=== PATIENT | female | born 1935 | race Caucasian/White ===

== ENCOUNTER → 2017-09-25 | Day surgery (SDC) | payer MEDICARE, BC ==
[~2017-09-25] MED LIST: Brimonidine 0.2% Ophth Soln 5 ML Bottle EYEBOTH SCH; Phenylephrine 2.5% Ophth Soln 2 ML Bot EYEBOTH SCH; Pilocarpine 4% Ophth Soln 15 ML Bot EYEBOTH SCH
[2017-09-25 12:12] VITALS: BP 183/79
== END ==
LOC: JD.SDS 09:57
PROVIDERS: ATTEND Ophthalmology
DX: H40.1131 Primary open-angle glaucoma, bilateral, mild stage (principal); H02.834 Dermatochalasis of left upper eyelid; H02.831 Dermatochalasis of right upper eyelid; H35.40 Unspecified peripheral retinal degeneration; H26.493 Other secondary cataract, bilateral; M06.9 Rheumatoid arthritis, unspecified; I10 Essential (primary) hypertension; E07.9 Disorder of thyroid, unspecified; Z96.1 Presence of intraocular lens; Z90.49 Acquired absence of other specified parts of digestive tract; Z90.89 Acquired absence of other organs; Z90.710 Acquired absence of both cervix and uterus; Z98.890 Other specified postprocedural states; Z79.899 Other long term (current) drug therapy
CPT/HCPCS: A9270-GY

== ENCOUNTER 2019-04-08 18:02 | Emergency (ER) | payer MEDICARE, BC ==
[2019-04-08 18:32] VITALS: BP 166/77; PULSE 84
--- NOTE | 2019-04-08 19:00 | EDM.PDOC ---
ED HPI GENERAL MEDICAL PROBLEM - General Chief Complaint: Head Injury Stated Complaint: FALL/HEAD AND FACIAL INJURIES Time Seen by Provider: 04/08/19 18:31 Source of Information: Reports: Patient, RN Notes Reviewed History Limitations: Reports: No Limitations - History of Present Illness INITIAL COMMENTS - FREE TEXT/NARRATIVE: Patient is an 83-year-old female who presents to the ED for evaluation of a fall , and facial injuries. The patient states that around 2 PM today she was walking outside, and fell onto the cement, and struck her face on the cement. She denies any loss of consciousness or blacking out, she states that she just fell down. She notes she had a prior fall exactly like this 2 weeks ago at home , she was not evaluated at that time. Patient denies any dizziness prior to the falls, and that she just fell, she is not sure why this is happening. She takes an 81 mg aspirin daily, but is not on any other sort of blood thinners. Patient denies any sort of headache, blurred vision or double vision, or pain elsewhere in the body. She complains of mild facial pain, and neck soreness. She did not take any sort of pain medication prior to arrival. She does have multiple abrasions to the bridge of her nose, the inner upper lip, and skin tear abrasions on her nose and chin. There is quite a bit of swelling and bruising around the patient's eyes. Patient is alert and oriented, and she was able to walk back to the ER room by herself. The patient does have a friend present in the room, she does not state that the patient's mentation has changed from her normal. - Related Data Allergies Allergy/AdvReac Type Severity Reaction Status Date / Time Beta-Blockers Allergy Cannot Verified 09/24/17 13:04 (Beta-Adrenergic Bloc Remember bimatoprost [From Lumigan] Allergy Redness Verified 09/24/17 13:04 brimonidine [From Combigan] Allergy Redness Verified 09/24/17 13:04 timolol [From Combigan] Allergy Redness Verified 09/24/17 13:04 Home Meds: Home Meds Brimonidine Tartrate [Alphagan P 0.1% Ophth Soln] 1 drop EYEBOTH TID 05/27/16 [ History] Levothyroxine 25 mcg PO DAILY 05/27/16 [History] Calcium Carbonate/Vitamin D3 [Calcium 600 + Vit D 400 Tablet] 1 each PO DAILY [History] Cranberry 500 mg PO DAILY 06/26/16 [History] Fish Oil/DHA/EPA [Fish Oil 1,200 MG] 1 each PO DAILY 06/26/16 [History] Garlic 200 mg PO DAILY 06/26/16 [History] Gluc Horn Dipo Ch/Kendall Horn/C/Vinicio [Glucosamine Chondroitin Caplet] 1 each PO DAILY 06/26/16 [History] L.acidoph,Paracasei, B.lactis [Probiotic] 1 each PO DAILY 06/26/16 [History] Lutein 40 mg PO DAILY 06/26/16 [History] Magnesium 200 mg PO DAILY 06/26/16 [History] Melatonin 3 mg PO BEDTIME 06/26/16 [History] Multivitamin [Multivitamins] 1 each PO DAILY 06/26/16 [History] Rutin 500 mg PO DAILY 06/26/16 [History] Acetaminophen/Diphenhydramine [Tylenol Pm Ex-Strength Caplet] 1 tab PO BEDTIME PRN 09/24/17 [History] Ascorbic Acid [Vitamin C] 1,000 mg PO DAILY 09/24/17 [History] Cholecalciferol (Vitamin D3) [Vitamin D3] 1,000 unit PO DAILY 09/24/17 [History] Flaxseed Oil 1,000 mg PO DAILY 09/24/17 [History] Lisinopril 10 mg PO DAILY 09/24/17 [History] Vitamin B Complex 1 cap PO DAILY 09/24/17 [History] Vitamin E 100 unit PO DAILY 09/24/17 [History] Past Medical History HEENT History: Reports: Impaired Vision Cardiovascular History: Reports: High Cholesterol Respiratory History: Reports: None Gastrointestinal History: Reports: None Genitourinary History: Reports: Urinary Incontinence 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: Musculoskeletal History: Reports: Osteoarthritis Neurological History: Reports: None Psychiatric History: Reports: Anxiety, Depression Other Psychiatric History: mild depression Endocrine/Metabolic History: Reports: Hypothyroidism Hematologic History: Reports: None Immunologic History: Reports: None Oncologic (Cancer) History: Reports: Basal Cell Carcinoma Dermatologic History: Reports: None - Infectious Disease History Infectious Disease History: Reports: None - Past Surgical History Head Surgeries/Procedures: Reports: None HEENT Surgical History: Reports: Oral Surgery, Tonsillectomy GI Surgical History: Reports: Appendectomy, Colonoscopy Female Surgical History: Reports: Hysterectomy Social & Family History - Tobacco Use Smoking Status *Q: Never Smoker - Caffeine Use Caffeine Use: Reports: None - Recreational Drug Use Recreational Drug Use: No - Living Situation & Occupation Living situation: Reports: Single, Alone Occupation: Retired ED ROS GENERAL - Review of Systems Review Of Systems: See Below Constitutional: Denies: Fever, Chills, Weakness HEENT: Reports: Glasses, Other (neck soreness, facial tenderness). Denies: Dental Pain, Ear Discharge, Eye Pain, Nosebleed, Vertigo, Vision Change Respiratory: Denies: Shortness of Breath Cardiovascular: Denies: Chest Pain Endocrine: Reports: No Symptoms GI/Abdominal: Denies: Abdominal Pain, Nausea, Vomiting Musculoskeletal: Reports: Neck Pain Skin: Reports: Bruising (under bilateral eyes), Wound (small lac to bridge of nose, multiple abrasions to nose and chin, laceration to inside upper lip) Neurological: Reports: Syncope. Denies: Dizziness, Headache, Numbness, Tingling , Difficulty Walking, Weakness, Gait Disturbance Psychiatric: Reports: No Symptoms Hematologic/Lymphatic: Reports: No Symptoms ED EXAM, HEAD INJURY - Physical Exam Exam: See Below Exam Limited By: No Limitations General Appearance: Alert, WD/WN, No Apparent Distress Head: Normocephalic, Facial Abrasions (multiple noted to nose and chin), Facial Ecchymosis (under bilateral eyes), Facial Lacerations (on bridge of nose medial to the eyes), Facial Swelling (mild under bilateral eyes), Facial Tenderness ( over bilateral zygomatic processes). No: Scalp Lacerations Nexus Criteria: No: Posterior, Midline Cervical Tenderness, Evidence of Intoxication, Altered Level of Consciousness, Focal Neurological Deficit, Painful Distraction Injuries Eyes: Bilateral Eye: EOMI, Normal Inspection, PERRL Ears: Normal External Exam, Normal Canal, Hearing Grossly Normal, Normal TMs Nose: Normal Mucousa, Other (see head assessment) Throat/Mouth: Normal Inspection, Normal Lips, Normal Teeth, Normal Gums, Normal Oropharynx, Normal Voice, No Airway Compromise, Lip Swelling (upper lip with laceration to inside medial upper lip) Neck: Full Range of Motion, Normal Alignment, Normal Inspection, Tender Lateral Respiratory: No Respiratory Distress, Lungs Clear, Normal Breath Sounds, No Accessory Muscle Use, Chest Non-Tender Cardiovascular: Normal Peripheral Pulses, Regular Rate, Rhythm, No Murmur GI/Abdominal Exam: Normal Bowel Sounds, Soft, Non-Tender, No Distention, No Mass Back Exam: Normal Inspection, Full Range of Motion Extremities: Normal Inspection, Normal Capillary Refill Neurologic: developer evangelist II-XII nml As Tested (grossly), No Motor/Sensory Deficits, Alert , Normal Mood/Affect, Oriented x 3 Skin: Normal Color, Warm/Dry, Ecchymosis (multiple noted on head assessment) - Scott Coma Score Best Eye Response ([place]): (4) Open Spontaneously Best Verbal Response ([place]): (5) Oriented Best Motor Response ([place]): (6) Obeys Commands Scott Total: 15 Course - Vital Signs Last Recorded V/S: Last Vital Signs Temp 98.4 F 04/08/19 18:27 Pulse 84 04/08/19 18:27 Resp 14 04/08/19 18:27 BP 166/77 H 04/08/19 18:27 Pulse Ox 97 04/08/19 18:27 - Orders/Labs/Meds Orders: Active Orders 24 hr Category Date Time Status Influenza Vaccine Charge [RC] .DISCHARGE Care 04/08/19 18:35 Active Labs: Laboratory Tests 04/08/19 04/08/19 04/08/19 Range/Units 19:26 19:26 19:26 WBC 8.45 (3.98-10.04) K/mm3 RBC 3.50 L (3.98-5.22) M/mm3 Hgb 12.0 D (11.2-15.7) gm/dl Hct 33.6 L (34.1-44.9) % MCV 96.0 H (79.4-94.8) fl MCH 34.3 H (25.6-32.2) pg MCHC 35.7 H (32.2-35.5) g/dl RDW Std Deviation 46.1 (36.4-46.3) fL Plt Count 258 (182-369) K/mm3 MPV 10.6 (9.4-12.3) fl Neut % (Auto) 79.8 H (34.0-71.1) % Lymph % (Auto) 11.0 L (19.3-51.7) % [place] % (Auto) 8.8 (4.7-12.5) % Eos % (Auto) 0.2 L (0.7-5.8) Baso % (Auto) 0.2 (0.1-1.2) % Neut # (Auto) 6.74 H (1.56-6.13) K/mm3 Lymph # (Auto) 0.93 L (1.18-3.74) K/mm3 [place] # (Auto) 0.74 H (0.24-0.36) K/mm3 Eos # (Auto) 0.02 L (0.04-0.36) K/mm3 Baso # (Auto) 0.02 (0.01-0.08) K/mm3 PT 10.5 (9.7-12.0) SECONDS INR 0.96 APTT 25 (22-31) SECONDS Sodium 133 L (136-145) mEq/L Potassium 3.7 (3.5-5.1) mEq/L Chloride 96 L (98-107) mEq/L Carbon Dioxide 30 (21-32) mEq/L Anion Gap 10.7 (5-15) BUN 23 H (7-18) mg/dL Creatinine 1.3 H (0.55-1.02) mg/dL Est Cr Clr Drug Dosing 21.14 mL/min Estimated GFR (MDRD) 39 (>60) mL/min BUN/Creatinine Ratio 17.7 (14-18) Glucose 142 H (83-115) mg/dL Calcium 9.5 (8.5-10.1) mg/dL Magnesium 1.9 (1.8-2.4) mg/dl Total Bilirubin 0.5 (0.2-1.0) mg/dL AST 27 (15-37) U/L ALT 31 (14-59) U/L Alkaline Phosphatase 66 (46-116) U/L Total Protein 7.2 (6.4-8.2) g/dl Albumin 3.6 (3.4-5.0) g/dl Globulin 3.6 gm/dL Albumin/Globulin Ratio 1.0 (1-2) Urine Color (Yellow) Urine Appearance (Clear) Urine pH (5.0-8.0) Ur Specific [place] (1.005-1.030) Urine Protein (Negative) Urine Glucose (UA) (Negative) Urine Ketones (Negative) Urine Occult Blood (Negative) Urine Nitrite (Negative) Urine Bilirubin (Negative) Urine Urobilinogen (0.2-1.0) Ur Leukocyte Esterase (Negative) Urine RBC (0-5) /hpf Urine WBC (0-5) /hpf Ur Squamous Epith Cells (0-5) /hpf Urine Bacteria (FEW) /hpf Urine Mucus (FEW) /hpf 04/08/19 Range/Units 20:02 WBC (3.98-10.04) K/mm3 RBC (3.98-5.22) M/mm3 Hgb (11.2-15.7) gm/dl Hct (34.1-44.9) % MCV (79.4-94.8) fl MCH (25.6-32.2) pg MCHC (32.2-35.5) g/dl RDW Std Deviation (36.4-46.3) fL Plt Count (182-369) K/mm3 MPV (9.4-12.3) fl Neut % (Auto) (34.0-71.1) % Lymph % (Auto) (19.3-51.7) % [place] % (Auto) (4.7-12.5) % Eos % (Auto) (0.7-5.8) Baso % (Auto) (0.1-1.2) % Neut # (Auto) (1.56-6.13) K/mm3 Lymph # (Auto) (1.18-3.74) K/mm3 [place] # (Auto) (0.24-0.36) K/mm3 Eos # (Auto) (0.04-0.36) K/mm3 Baso # (Auto) (0.01-0.08) K/mm3 PT (9.7-12.0) SECONDS INR APTT (22-31) SECONDS Sodium (136-145) mEq/L Potassium (3.5-5.1) mEq/L Chloride (98-107) mEq/L Carbon Dioxide (21-32) mEq/L Anion Gap (5-15) BUN (7-18) mg/dL Creatinine (0.55-1.02) mg/dL Est Cr Clr Drug Dosing mL/min Estimated GFR (MDRD) (>60) mL/min BUN/Creatinine Ratio (14-18) Glucose (83-115) mg/dL Calcium (8.5-10.1) mg/dL Magnesium (1.8-2.4) mg/dl Total Bilirubin (0.2-1.0) mg/dL AST (15-37) U/L ALT (14-59) U/L Alkaline Phosphatase (46-116) U/L Total Protein (6.4-8.2) g/dl Albumin (3.4-5.0) g/dl Globulin gm/dL Albumin/Globulin Ratio (1-2) Urine Color Yellow (Yellow) Urine Appearance Clear (Clear) Urine pH 6.5 (5.0-8.0) Ur Specific [place] 1.020 (1.005-1.030) Urine Protein Negative (Negative) Urine Glucose (UA) Negative (Negative) Urine Ketones Negative (Negative) Urine Occult Blood Negative (Negative) Urine Nitrite Negative (Negative) Urine Bilirubin Negative (Negative) Urine Urobilinogen 0.2 (0.2-1.0) Ur Leukocyte Esterase Negative (Negative) Urine RBC 0-5 (0-5) /hpf Urine WBC 0-5 (0-5) /hpf Ur Squamous Epith Cells 0-5 (0-5) /hpf Urine Bacteria Few (FEW) /hpf Urine Mucus Not seen (FEW) /hpf Meds: Medications Discontinued Medications Generic Name Dose Route Start Last Admin Trade Name Freq PRN Reason Stop Dose Admin Influenza Virus Vaccine 180 mcg 04/08/19 18:45 04/08/19 19:41 Fluzone High-Dose 2019-20 Syringe IM 04/08/19 18:46 180 mcg .ONCE ONE Administration - Re-Assessments/Exams Free Text/Narrative Re-Assessment/Exam: 04/08/19 19:05 Patient presents to the ED for evaluation of a fall and multiple facial injuries. I did order some lab work to include CBC, CMP, magnesium, urinalysis , PTT and PT/INR,, head CT, cervical spine CT, and maxillofacial CT without contrast for further evaluation of injury she may have sustained. The wound on the bridge of her nose will need to be repaired, this is to be determined on how this will be done at this point in time, all other wounds are abrasion-like wounds. The wound on the inside of her lip will be left to heal on its own intention, as I believe placing stitches would be more bothersome to the patient. 04/08/19 20:05 Patient's labs are done, and do not demonstrate any obvious acute abnormalities , she is mildly hyponatremic at 133, this should be easily corrected with oral fluid intake, no meningeal be done in the ER for this today. The patient's CTs of the head demonstrates senescent change, but no acute bleed or abnormalities, the maxillofacial CT demonstrates a mildly comminuted and mildly displaced nasal bone fracture with soft tissue swelling noted within the nose but no additional fractures seen, the right and left globes are symmetric. The patient 's cervical spine CT demonstrates degenerative change noted but nothing acute appreciated. Departure - Departure Time of Disposition: 20:28 Disposition: Home, Self-Care 01 Condition: Fair Clinical Impression: Nasal bones, closed fracture Qualifiers: Encounter type: initial encounter Qualified Code(s): S02.2XXA - Fracture of nasal bones, initial encounter for closed fracture Fall Qualifiers: Encounter type: initial encounter Qualified Code(s): W19.XXXA - Unspecified fall, initial encounter - Discharge Information *PRESCRIPTION DRUG MONITORING PROGRAM REVIEWED*: No *COPY OF PRESCRIPTION DRUG MONITORING REPORT IN PATIENT ALIS: No Instructions: Nasal Fracture, [id number], Facial or Scalp Contusion, Easy-to- Read Referrals: Jocy Duncan MD [Primary Care Provider] - Forms: ED Department Discharge Additional Instructions: You were evaluated in the ED today for your fall and facial injuries. The CT done of the facial bones demonstrates that you to have a nasal fracture, this should heal fine without needing any sort of orthopedic management. Your lacerations were treated in the ER today, there was a Steri-Strip placed on the bridge or nose, this was the only site that needed a bandage, the rest are abrasions and will scab and heal over time. The bruises and your eyes will likely worsen over the next day or 2, but should get better. Your laboratory evaluation was within normal limits, there are no metabolic abnormalities that would point to why you are having increased falls, recommend that you follow up with your primary care physician for further management. Please ice the area in 15 minute intervals as tolerated to help relieve the swelling. You may take 500 mg of Tylenol or ibuprofen 400 mg every 6 hours as needed for further pain relief. Regarding the lifeline situation. Unfortunately, there is nothing that can be provided through the ER for tonight's purposes. [facility] services should be able to help you tomorrow. Please krishna [phone] to try and set up services. Please return to the ED if your symptoms should change or worsen. - My Orders Last 24 Hours: My Active Orders 04/08/19 18:35 Influenza Vaccine Charge [RC] .DISCHARGE - Assessment/Plan Last 24 Hours: My Active Orders 04/08/19 18:35 Influenza Vaccine Charge [RC] .DISCHARGE
--- NOTE | 2019-04-08 19:52 | CT ---
Head CT Technique: Multiple axial sections through the brain were obtained. Intravenous contrast was not utilized. Comparison: No previous intracranial imaging. Findings: Ventricles along with basal cisterns and sulci over convexities are mildly prominent. Diminished density is noted within the periventricular and subcortical white matter compatible with small vessel ischemic demyelination change. No evidence of intracranial hemorrhage. No midline shift or mass effect is seen. Bone window settings were reviewed which shows no acute calvarial abnormality. Visualized sinuses are clear. Nasal bone fracture is noted which will be further described on facial bone study. Impression: 1. Senescent change as noted above. 2. Nasal bone fracture which will be described on CT facial bone study. 3. No acute intracranial abnormality or skull fracture is seen. Diagnostic code #2
--- NOTE | 2019-04-08 19:53 | CT ---
CT cervical spine Technique: Multiple axial sections were obtained from above C1 inferiorly to the bottom of T1. Reconstructed sagittal and coronal images were reviewed. Comparison: No prior cervical spine imaging. Findings: Degenerative change is noted between the dens and anterior arch of C1. Severe disc space narrowing is noted at C5-C6 with mild posterior spurring and anterior osteophytes. Mild disc space narrowing is noted at C2-C3. Other disc spaces are maintained. Vertebral body heights are maintained. Mild right-sided neural foraminal stenosis is noted C5-C6 with minimal left-sided neural foraminal stenosis. No other findings of neural foraminal narrowing are seen. No bony central canal stenosis is noted. No fracture is seen. No abnormal subluxation is seen. Mild degenerative change is scattered within the apophyseal joints. Degenerative spurring is noted within the uncovertebral joints which is most prominent at C5-C6. Impression: 1. Degenerative change as noted above. Nothing acute is appreciated. Diagnostic code #2
--- NOTE | 2019-04-08 19:55 | CT ---
CT facial bones Technique: Multiple axial sections were obtained through the facial bones. Reconstructed coronal and sagittal images were obtained. Findings: Mildly comminuted and mildly displaced nasal bone fracture is seen. Soft tissue swelling is also noted within the nose. No additional fracture is seen. Right left globes are symmetric. Impression: 1. Mildly comminuted and mildly displaced nasal bone fracture. 2. Nothing else acute is seen on CT study of the facial bones. Diagnostic code #3
== END 2019-04-08 21:18 | disposition home or self-care (01) ==
LOC: JD.ED 18:02
DX: S02.2XXA Fracture of nasal bones, initial encounter for closed fracture (principal); S00.83XA Contusion of other part of head, initial encounter; S00.81XA Abrasion of other part of head, initial encounter; E78.00 Pure hypercholesterolemia, unspecified; E03.9 Hypothyroidism, unspecified; Z79.890 Hormone replacement therapy; Z85.9 Personal history of malignant neoplasm, unspecified; Z23 Encounter for immunization; Z79.899 Other long term (current) drug therapy; Z79.82 Long term (current) use of aspirin; Z88.8 Allergy status to other drugs, medicaments and biological substances; W19.XXXA Unspecified fall, initial encounter; Y93.01 Activity, walking, marching and hiking; Y92.89 Other specified places as the place of occurrence of the external cause
CPT/HCPCS: 36415; 70450; 70486; 72125; 80053; 81001; 83735; 85025; 85610; 85730; 90662; 99283; G0008; 99282

== ENCOUNTER 2019-04-09 09:08 | Emergency (ER) | payer MEDICARE, BC ==
[2019-04-09 09:32] VITALS: BP 140/59; PULSE 59
--- NOTE | 2019-04-09 11:04 | EDM.PDOC ---
ED HPI GENERAL MEDICAL PROBLEM - General Chief Complaint: ENT Problem Stated Complaint: FACIAL INJURIES/RECHECK Time Seen by Provider: 04/09/19 09:30 Source of Information: Reports: Patient History Limitations: Reports: No Limitations - History of Present Illness INITIAL COMMENTS - FREE TEXT/NARRATIVE: The patient presents with epistaxis. She fell yesterday and landed on her face. She was seen here and had a CT of her head, face, and cervical spine. She was found to have a nasal bone fracture. She said it bled most of the night. The bleeding is mostly from the left nostril. Onset: Sudden Duration: Day(s): (Yesterday) Location: Reports: Face Quality: Reports: Ache Severity: Moderate Improves with: Reports: None Worsens with: Reports: None Associated Symptoms: Reports: No Other Symptoms - Related Data Allergies Allergy/AdvReac Type Severity Reaction Status Date / Time Beta-Blockers Allergy Cannot Verified 04/09/19 09:32 (Beta-Adrenergic Bloc Remember bimatoprost [From Lumigan] Allergy Redness Verified 04/09/19 09:32 brimonidine [From Combigan] Allergy Redness Verified 04/09/19 09:32 timolol [From Combigan] Allergy Redness Verified 04/09/19 09:32 Home Meds: Home Meds Brimonidine Tart[facility] 1 drop EYEBOTH TID 05/27/16 [ History] Levothyroxine 25 mcg PO DAILY 05/27/16 [History] Calcium Carbonate/Vitamin D3 [Calcium 600 + Vit D 400 Tablet] 1 each PO DAILY [History] Cranberry 500 mg PO DAILY 06/26/16 [History] Fish Oil/DHA/EPA [Fish Oil 1,200 MG] 1 each PO DAILY 06/26/16 [History] Garlic 200 mg PO DAILY 06/26/16 [History] Gluc Horn Dipo Ch/Kendall Horn/C/Vinicio [Glucosamine Chondroitin Caplet] 1 each PO DAILY 06/26/16 [History] L.acidoph,Paracasei, B.lactis [Probiotic] 1 each PO DAILY 06/26/16 [History] Lutein 40 mg PO DAILY 06/26/16 [History] Magnesium 200 mg PO DAILY 06/26/16 [History] Melatonin 3 mg PO BEDTIME 06/26/16 [History] Multivitamin [Multivitamins] 1 each PO DAILY 06/26/16 [History] Rutin 500 mg PO DAILY 06/26/16 [History] Acetaminophen/Diphenhydramine [Tylenol Pm Ex-Strength Caplet] 1 tab PO BEDTIME PRN 09/24/17 [History] Ascorbic Acid [Vitamin C] 1,000 mg PO DAILY 09/24/17 [History] Cholecalciferol (Vitamin D3) [Vitamin D3] 1,000 unit PO DAILY 09/24/17 [History] Flaxseed Oil 1,000 mg PO DAILY 09/24/17 [History] Lisinopril 10 mg PO DAILY 09/24/17 [History] Vitamin B Complex 1 cap PO DAILY 09/24/17 [History] Vitamin E 100 unit PO DAILY 09/24/17 [History] cephALEXin [Keflex] 500 mg PO Q8H #21 cap 04/09/19 [Rx] Past Medical History HEENT History: Reports: Impaired Vision Cardiovascular History: Reports: High Cholesterol Respiratory History: Reports: None Gastrointestinal History: Reports: None Genitourinary History: Reports: Urinary Incontinence 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: Musculoskeletal History: Reports: Osteoarthritis Neurological History: Reports: None Psychiatric History: Reports: Anxiety, Depression Other Psychiatric History: mild depression Endocrine/Metabolic History: Reports: Hypothyroidism Hematologic History: Reports: None Immunologic History: Reports: None Oncologic (Cancer) History: Reports: Basal Cell Carcinoma Dermatologic History: Reports: None - Infectious Disease History Infectious Disease History: Reports: None - Past Surgical History Head Surgeries/Procedures: Reports: None HEENT Surgical History: Reports: Oral Surgery, Tonsillectomy GI Surgical History: Reports: Appendectomy, Colonoscopy Female Surgical History: Reports: Hysterectomy Social & Family History - Caffeine Use Caffeine Use: Reports: None - Living Situation & Occupation Living situation: Reports: Single, Alone Occupation: Retired ED ROS ENT - Review of Systems Review Of Systems: See Below Constitutional: Reports: No Symptoms HEENT: Reports: Nosebleed Respiratory: Reports: No Symptoms Cardiovascular: Reports: No Symptoms Endocrine: Reports: No Symptoms GI/Abdominal: Reports: No Symptoms : Reports: No Symptoms ED EXAM, ENT - Physical Exam Exam: See Below Exam Limited By: No Limitations General Appearance: Alert, No Apparent Distress Ears: Normal External Exam Nose: Other (Edema and ecchymosis. Mild bleeding from the left nostril) Head: Other (Ecchymosis below both eyes. Abrasions and edema to her face) Neck: Normal Inspection Respiratory/Chest: No Respiratory Distress ED ENT PROCEDURES - Epistaxis Procedure Indication: Epistaxis Recent anticoagulants/antiplatlets: Yes (aspirin) Uncontrolled HTN: No Recent septal/nasal surgery: No Site of bleeding: Left Nare Clearing of clots: Patient Blew Nose Ice pack to area: No Chemical cautery: Silver Nitrate Topical Anterior Packing: Petrolatum Guaze Strip Course - Vital Signs Last Recorded V/S: Last Vital Signs Temp 96.6 F 04/09/19 09:29 Pulse 59 L 04/09/19 09:29 Resp 18 04/09/19 09:29 BP 140/59 L 04/09/19 09:29 Pulse Ox 98 04/09/19 09:29 - Orders/Labs/Meds Meds: Medications Discontinued Medications Generic Name Dose Route Start Last Admin Trade Name Freq PRN Reason Stop Dose Admin Acetaminophen 650 mg 04/09/19 12:11 Tylenol PO 04/09/19 12:12 ONETIME ONE - Re-Assessments/Exams Free Text/Narrative Re-Assessment/Exam: 04/09/19 11:04 I tried to cauterize the bleed but it did not stop so I packed it with petroleum gauze. I will see if that stops it. 04/09/19 12:23 The bleeding appears to have stopped. I will get her on some keflex because I did pack her. Departure - Departure Time of Disposition: 12:25 Disposition: Home, Self-Care 01 Condition: Good Clinical Impression: Epistaxis Nasal bones, closed fracture Qualifiers: Encounter type: initial encounter Qualified Code(s): S02.2XXA - Fracture of nasal bones, initial encounter for closed fracture Fall Qualifiers: Encounter type: initial encounter Qualified Code(s): W19.XXXA - Unspecified fall, initial encounter - Discharge Information *PRESCRIPTION DRUG MONITORING PROGRAM REVIEWED*: No *COPY OF PRESCRIPTION DRUG MONITORING REPORT IN PATIENT ALIS: No Prescriptions: cephALEXin [Keflex] 500 mg PO Q8H #21 cap Referrals: Jocy Duncan MD [Primary Care Provider] - Forms: ED Department Discharge Additional Instructions: Take the keflex 3 times per day for 7 days. Follow up within a week and have the packing removed. Please return if you are worse.
[2019-04-09] MEDS ORDERED: Acetaminophen 325 MG Tab PO ONE (12:11)
== END 2019-04-09 12:46 | disposition home or self-care (01) ==
LOC: JD.ED 09:08
DX: S02.2XXA Fracture of nasal bones, initial encounter for closed fracture (principal); R04.0 Epistaxis; S00.12XA Contusion of left eyelid and periocular area, initial encounter; S00.11XA Contusion of right eyelid and periocular area, initial encounter; S00.81XA Abrasion of other part of head, initial encounter; E03.9 Hypothyroidism, unspecified; H54.7 Unspecified visual loss; Z79.890 Hormone replacement therapy; Z88.8 Allergy status to other drugs, medicaments and biological substances; W19.XXXA Unspecified fall, initial encounter
CPT/HCPCS: 30901; 99283; A9270; 30905

== ENCOUNTER 2020-09-18 15:11 | Emergency (ER) | payer MEDICARE, BC ==
--- NOTE | 2020-09-18 15:49 | EDM.PDOC ---
ED HPI GENERAL MEDICAL PROBLEM - General Chief Complaint: ENT Problem Stated Complaint: HEAD/FACE INJURIES Time Seen by Provider: 09/18/20 15:48 - History of Present Illness INITIAL COMMENTS - FREE TEXT/NARRATIVE: 85-year-old female comes in by private car after falling and hitting her face. The patient was walking back to her apartment from the grocery store and she believes she stumbled or tripped over something and fell forward. She landed right on her nose. She also cut her upper lip and broke a tooth. Patient denies being knocked out. Patient does not believe she had dizzy before falling. She denies any other injury associated with this most unfortunate event. Patient denies any chest pain breathing difficulties and certainly has not had any palpitations. She is unaware when her last tetanus shot was. Face/Facial Pain Score (Numeric/FACES): 5 - Related Data Allergies Allergy/AdvReac Type Severity Reaction Status Date / Time Beta-Blockers Allergy Severe Cannot Verified 09/18/20 15:21 (Beta-Adrenergic Bloc Remember bimatoprost [From Lumigan] Allergy Severe Redness Verified 09/18/20 15:21 brimonidine [From Combigan] Allergy Severe Redness Verified 09/18/20 15:21 timolol [From Combigan] Allergy Severe Redness Verified 09/18/20 15:21 Home Meds: Home Meds Brimonidine Tartrate [Alphagan P 0.1% Ophth Soln] 1 drop EYEBOTH TID 05/27/16 [History] Levothyroxine 25 mcg PO DAILY 05/27/16 [History] Calcium Carbonate/Vitamin D3 [Calcium 600 + Vit D 400 Tablet] 1 each PO DAILY 06/26/16 [History] Cranberry 500 mg PO DAILY 06/26/16 [History] Fish Oil/DHA/EPA [Fish Oil 1,200 MG] 1 each PO DAILY 06/26/16 [History] Garlic 200 mg PO DAILY 06/26/16 [History] Glucosamine/Chondroitin/C/Vinicio [Glucosamine Chondroitin Caplet] 1 each PO DAILY 06/26/16 [History] L.acidoph,Paracasei, B.lactis [Probiotic] 1 each PO DAILY 06/26/16 [History] Lutein 40 mg PO DAILY 06/26/16 [History] Magnesium 200 mg PO DAILY 06/26/16 [History] Melatonin 3 mg PO BEDTIME 06/26/16 [History] Multivitamin [Multivitamins] 1 each PO DAILY 06/26/16 [History] Rutin 500 mg PO DAILY 06/26/16 [History] Acetaminophen/Diphenhydramine [Tylenol Pm Ex-Strength Caplet] 1 tab PO BEDTIME PRN 09/24/17 [History] Ascorbic Acid [Vitamin C] 1,000 mg PO DAILY 09/24/17 [History] Cholecalciferol (Vitamin D3) [Vitamin D3] 1,000 unit PO DAILY 09/24/17 [History] Flaxseed Oil 1,000 mg PO DAILY 09/24/17 [History] Lisinopril 10 mg PO DAILY 09/24/17 [History] Vitamin B Complex 1 cap PO DAILY 09/24/17 [History] Vitamin E 100 unit PO DAILY 09/24/17 [History] cephALEXin [Keflex] 500 mg PO Q8H #21 cap 04/09/19 [Rx] Amoxicillin 875 mg PO BID #20 tablet 09/18/20 [Rx] Past Medical History HEENT History: Reports: Impaired Vision Cardiovascular History: Reports: High Cholesterol Respiratory History: Reports: None Gastrointestinal History: Reports: None Genitourinary History: Reports: Urinary Incontinence [employer]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: Musculoskeletal History: Reports: Osteoarthritis Neurological History: Reports: None Psychiatric History: Reports: Anxiety, Depression Other Psychiatric History: mild depression Endocrine/Metabolic History: Reports: Hypothyroidism Hematologic History: Reports: None Immunologic History: Reports: None Oncologic (Cancer) History: Reports: Basal Cell Carcinoma Dermatologic History: Reports: None - Infectious Disease History Infectious Disease History: Reports: None - Past Surgical History Head Surgeries/Procedures: Reports: None HEENT Surgical History: Reports: Oral Surgery, Tonsillectomy GI Surgical History: Reports: Appendectomy, Colonoscopy Female Surgical History: Reports: Hysterectomy Dermatological Surgical History: Reports: Other (See Below) Social & Family History - Family History Family Medical History: No Pertinent Family History - Tobacco Use Tobacco Use Status *Q: Never Tobacco User - Caffeine Use Caffeine Use: Reports: None - Recreational Drug Use Recreational Drug Use: No - Living Situation & Occupation Living situation: Reports: Single, Alone Occupation: Retired ED ROS ENT - Review of Systems Review Of Systems: See Below Constitutional: Reports: No Symptoms HEENT: Reports: Other (No complaints other than the injuries sustained today from the fall) Respiratory: Reports: No Symptoms Cardiovascular: Reports: No Symptoms Endocrine: Reports: No Symptoms GI/Abdominal: Reports: No Symptoms : Reports: No Symptoms Musculoskeletal: Reports: No Symptoms. Denies: Neck Pain, Shoulder Pain, Arm Pain, Back Pain, Hand Pain Neurological: Reports: No Symptoms. Denies: Dizziness, Headache, Numbness, Trouble Speaking, Difficulty Walking Psychiatric: Reports: No Symptoms ED EXAM, ENT - Physical Exam Exam: See Below Exam Limited By: No Limitations General Appearance: Alert, No Apparent Distress Eye Exam: Bilateral Eye: EOMI, Normal Inspection, PERRL Ears: Normal External Exam, Normal Canal, Hearing Grossly Normal, Normal TMs Nose: Other (Dried blood right naris no obvious deformity) Mouth/Throat: Normal Oropharynx, Other (She has a laceration involving the right upper lip right over the vermilion border. She has some dental work looks like she has an implant of some sort that was fractured during the fall she has an inner upper lip laceration) Head: Scalp Tenderness Neck: Normal Inspection, Supple, Non-Tender. No: Lymphadenopathy (L), Lymphadenopathy (R) Respiratory/Chest: No Respiratory Distress, Lungs Clear, Normal Breath Sounds, No Accessory Muscle Use Cardiovascular: Regular Rate, Rhythm, No Edema, No Murmur GI/Abdominal: Normal Bowel Sounds, Soft, Non-Tender Back: Normal Inspection. No: CVA Tenderness (L), CVA Tenderness (R), Vertebral Tenderness Extremities: Normal Inspection, No Pedal Edema Neurological: Alert, Oriented, Normal Cognition ED ENT PROCEDURES - Laceration/Wound Repair Face Lac/wound length in cm: 1.2 (Vermilion border mid upper lip) Appearance: Subcutaneous, Stellate, Irregular, Moderately Contaminated (Several tooth fragments were removed) Anesthetic Type: Local Local Anesthesia - Lidocaine (Xylocaine): 1% Plain Local Anesthetic Volume: 2cc Skin Prep: Saline Exploration/Debridement/Repair: In a Bloodless Field, Explored to Base Suture Size: 5-0 # of Sutures: 4 Suture Type: Nylon Tetanus Status Addressed: Yes (This was brought up-to-date) Complications: None Mouth Lac/wound length in cm: 1.4 Appearance: Subcutaneous Local Anesthesia - Lidocaine (Xylocaine): 1% Plain Local Anesthetic Volume: 1cc Exploration/Debridement/Repair: Wound Explored, In a Bloodless Field, Explored to Base (Surprisingly this does not communicate with the external laceration) Suture Size: 4-0 # of Sutures: 1 (Vicryl stitch was placed to loosely approximate this) Repaired with: Vicryl Complications: None Course - Vital Signs Last Recorded V/S: Last Vital Signs Temp 36.2 C 09/18/20 15:16 Pulse 92 09/18/20 15:16 Resp 16 09/18/20 15:16 BP 129/81 09/18/20 15:16 Pulse Ox 94 L 09/18/20 15:16 - Orders/Labs/Meds Orders: Active Orders 24 hr Category Date Time Status Vaccines to be Administered [RC] PER UNIT ROUTINE Care 09/18/20 16:27 Active Meds: Medications Discontinued Medications Generic Name Dose Route Start Last Admin Trade Name Freq PRN Reason Stop Dose Admin Diphtheria/Tetanus/Acell Pertussis 0.5 ml 09/18/20 16:27 09/18/20 18:28 Diphtheria,Pertussis(Acell),Tetanus Vaccine 0.5 Ml Syringe IM 09/18/20 16:28 Not Given .ONCE ONE Diphtheria/Tetanus/Acell Pertussis Confirm 09/18/20 18:17 09/18/20 18:23 Diphtheria,Pertussis(Acell),Tetanus Vaccine 0.5 Ml Syringe Administered 09/18/20 18:18 0.5 ml Dose Administration 0.5 ml .ROUTE .STK-MED ONE Lidocaine HCl 10 ml 09/18/20 17:17 09/18/20 18:21 Lidocaine 1% 10 Ml Mdv INJECT 09/18/20 17:18 10 ml ONETIME ONE Administration - Re-Assessments/Exams Free Text/Narrative Re-Assessment/Exam: 09/18/20 19:46 CT of the head is unremarkable maxillofacial shows nondisplaced fractures involving the inferior right orbital floor, medial right maxillary sinus and the posterior right maxillary sinus. No other abnormalities appreciated except some blood noted in the right maxillary sinus most likely due to the most recent trauma. Case was discussed with Dr. Ramirez, on-call for maxillofacial at [facility] in [place] she agrees treatment can be oral antibiotics and being careful not to increase in her sinus pressure for a few weeks. Departure - Departure Time of Disposition: 19:49 Disposition: Home, Self-Care 01 Clinical Impression: Facial trauma, Laceration of vermilion border of upper lip, Intraoral laceration - Discharge Information Referrals: Jocy Duncan MD [Primary Care Provider] - Forms: ED Department Discharge Additional Instructions: Return to the emergency room with any questions problems or worsening symptoms. Follow-up with your regular healthcare provider at the end of this next week. Have the stitches removed. You will need to follow-up with your dentist to investigate dental repair options. You have been started on antibiotics. Tomorrow [facility] on [facility] [place] will be open between noon and 4 PM your prescription will be sent there. Do not blow your nose for several weeks. And if you must sneeze, sneeze with an open mouth. Sepsis Event Note (ED) - Evaluation Sepsis Screening Result: No Definite Risk - Focused Exam Vital Signs: Vital Signs Temp Pulse Resp BP Pulse Ox 09/18/20 15:16 36.2 C 92 16 129/81 94 L - My Orders Last 24 Hours: My Active Orders 09/18/20 16:27 Vaccines to be Administered [RC] PER UNIT ROUTINE - Assessment/Plan Last 24 Hours: My Active Orders 09/18/20 16:27 Vaccines to be Administered [RC] PER UNIT ROUTINE
[2020-09-18] MEDS ORDERED: Diphtheria,Pertussis(Acell),Tetanus Vaccine 0.5 ML Syringe IM ONE (16:27)
--- NOTE | 2020-09-18 17:02 | CT ---
Head CT Technique: Multiple axial sections through the brain were obtained. Reconstructed coronal and sagittal images were obtained. No intravenous contrast was utilized. Comparison: Prior head CT study of 04/08/19. Findings: Ventricles along the basal cisterns and sulci over the convexities are mildly prominent. Diffuse diminished density is seen within the periventricular and subcortical white matter which most likely represents small vessel ischemic demyelination change. No other abnormal parenchymal densities are seen. No evidence of intracranial hemorrhage. No midline shift or mass-effect is seen. Atherosclerotic calcification is seen within the vertebral vessels and within the carotid siphon. Visualized mastoid sinuses and paranasal sinuses show nothing acute. No acute calvarial finding is appreciated. Impression: 1. Senescent change as described above. 2. Nothing acute is appreciated on noncontrast head CT exam. Diagnostic code #2
--- NOTE | 2020-09-18 17:08 | CT ---
CT maxillofacial Technique: Multiple axial sections through the maxillofacial areas were obtained. Reconstructed coronal and sagittal images were obtained. Comparison: Prior CT facial bone study of 04/08/19. Findings: There is a very minimal disruption of the inferior right orbital floor most likely representing a nondisplaced fracture. Suspected fracture within the medial right maxillary sinus as well as probable minimal and nondisplaced fracture within the posterior maxillary sinus. Fluid is seen within the maxillary sinus most likely due to blood. Other paranasal sinuses are clear. No additional facial bone fracture is noted. Scattered degenerative change is seen within the cervical spine. Impression: 1. Nondisplaced fractures involving the inferior right orbital floor, medial right maxillary sinus and posterior right maxillary sinus. Maxillary sinus on the right side also contains blood. 2. No other acute abnormality is appreciated. 3. Prior study showed a nasal bone fracture which appears healed. Diagnostic code #3
[2020-09-18] MEDS ORDERED: Lidocaine 1% 10 ML MDV INJECT ONE (17:17)
[2020-09-18] MEDS ORDERED: Diphtheria,Pertussis(Acell),Tetanus Vaccine 0.5 ML Syringe ONE (18:17)
[2020-09-18] MEDS ORDERED: Amoxicillin 500 MG Cap PO ONE (19:48)
[2020-09-18 20:45] VITALS: BP 186/94; PULSE 81
== END 2020-09-18 20:22 | disposition home or self-care (01) ==
LOC: JD.ED 15:11
DX: S01.511A Laceration without foreign body of lip, initial encounter (principal); Z23 Encounter for immunization; Z88.8 Allergy status to other drugs, medicaments and biological substances; E78.00 Pure hypercholesterolemia, unspecified; E03.9 Hypothyroidism, unspecified; Z79.899 Other long term (current) drug therapy; W01.0XXA Fall on same level from slipping, tripping and stumbling without subsequent striking against object, initial encounter
CPT/HCPCS: 12013; 12051; 70450; 70450-26; 70486; 70486-26; 90471; 90715; 99283; 99283-25

== ENCOUNTER 2022-07-06 13:14 | Emergency (ER) | payer MEDICARE, BC ==
[2022-07-06 13:28] VITALS: BP 162/86; PULSE 75
[2022-07-06] MEDS ORDERED: Dextrose 5%-0.9% NaCl 1,000 ML IV SCH (14:30)
[2022-07-06 15:52] LABS: ESTIMATED GFR 50 mL/min (>60)
== END 2022-07-06 17:15 | disposition home or self-care (01) ==
LOC: JD.ED 13:14
DX: R42 Dizziness and giddiness (principal); Z88.6 Allergy status to analgesic agent; Z88.8 Allergy status to other drugs, medicaments and biological substances; Z79.899 Other long term (current) drug therapy; Z90.49 Acquired absence of other specified parts of digestive tract
CPT/HCPCS: 36415; 71045; 80053; 81001; 82553; 83735; 83880; 84484; 85025; 85610; 85730; 86140; 93005; 96360; 96361; 99285; J7042

== ENCOUNTER 2023-06-19 15:37 | Emergency (ER) | payer MEDICARE, BC ==
[2023-06-19 16:31] LABS: BASOPHILS ABSOLUTE AUTO 0.1 K/mm3 (0.0-0.2); BASOPHILS PERCENT AUTO 0.8 % (0.0-1.0); EOSINOPHILS ABSOLUTE AUTO 0.2 K/mm3 (0.0-0.4); EOSINOPHILS PERCENT AUTO 2.2 % (0.0-6.0); HEMATOCRIT 35.4 % (37.0-47.0); IMMATURE GRAN ABSOLUTE AUTO 0.01 K/mm3 (0.00-0.05); IMMATURE GRAN PERCENT AUTO 0.1 % (0.0-0.4); LYMPHOCYTES ABSOLUTE AUTO 2.1 K/mm3 (1.0-4.8); LYMPHOCYTES PERCENT AUTO 28.8 % (24.0-44.0); MEAN CORPUSCULAR HEMOGLOBIN 31.6 pg (28.0-32.0); MEAN CORPUSCULAR HGB CONC 33.9 g/dl (32.0-36.0); MEAN CORPUSCULAR VOLUME 93.2 fl (83.0-99.0); MEAN PLATELET VOLUME 12.1 fl (9.4-12.3); MONOCYTES ABSOLUTE AUTO 0.6 K/mm3 (0.0-0.8); MONOCYTES PERCENT AUTO 8.4 % (0.0-8.0); NEUTROPHILS ABSOLUTE AUTO 4.4 K/mm3 (1.8-7.7); NEUTROPHILS PERCENT AUTO 59.7 % (41.0-71.0); PLATELET COUNT,PLT 216 K/mm3 (150-400); WHITE BLOOD CELL COUNT,WBC 7.29 K/mm3 (3.9-11.3)
[2023-06-19 16:51] LABS: A/G RATIO 0.8 (1-2); ALANINE AMINOTRANSFERASE,ALT 15 U/L (14-59); ALBUMIN 3.5 g/dl (3.4-5.0); ALKALINE PHOSPHATASE 72 U/L (46-116); ANION GAP 11.9 (5-15); ASPARTATE AMNIOTRANSFERASE,AST 18 U/L (15-37); BILIRUBIN TOTAL 0.4 mg/dL (0.2-1.0); BLOOD UREA NITROGEN,BUN 27 mg/dL (7-18); BUN/CREATININE RATIO 19.3 (14-18); CALCIUM 9.8 mg/dL (8.5-10.1); CARBON DIOXIDE,CO2 29 mEq/L (21-32); CHLORIDE,CL 104 mEq/L (98-107); CREATININE 1.4 mg/dL (0.55-1.02); ESTIMATED GFR 37 mL/min (>60); GLUCOSE RANDOM 132 mg/dL (70-99); POTASSIUM,K 3.9 mEq/L (3.5-5.1); PROTEIN TOTAL,TP 7.8 g/dl (6.4-8.2); SODIUM,NA 141 mEq/L (136-145)
[2023-06-19 21:35] VITALS: BP 155/78; PULSE 85
== END 2023-06-19 17:30 | disposition home or self-care (01) ==
LOC: JD.ED 15:37
DX: S93.401A Sprain of unspecified ligament of right ankle, initial encounter (principal); S00.81XA Abrasion of other part of head, initial encounter; E78.00 Pure hypercholesterolemia, unspecified; E03.9 Hypothyroidism, unspecified; Z79.899 Other long term (current) drug therapy; Z90.710 Acquired absence of both cervix and uterus; Z88.8 Allergy status to other drugs, medicaments and biological substances; W01.198A Fall on same level from slipping, tripping and stumbling with subsequent striking against other object, initial encounter; Y93.01 Activity, walking, marching and hiking
CPT/HCPCS: 36415; 70450; 70450-26; 73610-26-RT; 73610-RT; 80053; 85025; 99282; 99284